=== PATIENT | female | born 2005 | race Two or more races ===

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

== ENCOUNTER 2025-08-14 15:28 | Inpatient (IN) | payer MEDICAID ==
[~2025-08-14] VITALS: Ht 165.1 cm; Wt 89.4 kg
[2025-08-14 17:45] LABS: Urine Budding Yeast OCCASIONAL /hpf (None Seen); Urine Protein, UAD TRACE (Negative)
[2025-08-14] MEDS ORDERED: LIDOCAINE 2%HCL (LOCAL ANESTH.) INJ 20ML MDV IJ PRN (18:15)
[2025-08-14] MEDS ORDERED: BUTORPHANOL TARTRATE 2 MG/1 ML VIAL IV PRN ×2 (18:15)
[2025-08-14] MEDS ORDERED: PENICILLIN G POT 5MIL/D5 50ML 50 ML IV ONE (18:45)
[2025-08-14 18:54] LABS: Amphetamine Screen, Urine Neg (NEGATIVE); Barbiturate Scree,Urine Neg (NEGATIVE); Benzodiazephine Screen, Urine Neg (NEGATIVE); Cannabinoid Screen, Urine Neg (NEGATIVE); Cocaine Screen, Urine Neg (NEGATIVE); Opiate Scree,Urine Neg (NEGATIVE); Phencyclidine Screen, Urine Neg (NEGATIVE)
[2025-08-14 18:57] LABS: Hematocrit 38.6 % (36.0-46.0); Hemoglobin 13.2 g/dL (12.2-16.2); Mean Corpuscular Hemoglobin 27.9 pg (28.0-32.0); Mean Corpuscular Volume 81.2 fL (80.0-100.0); Nucleated Red Blood Cells % 0.0 %
[2025-08-14 19:14] LABS: Alkaline Phosphatase 110 U/L (46-116); Calcium 8.9 mg/dL (8.7-10.4); Carbon Dioxide 23 mmol/L (20-31); Chloride 105 mmol/L (98-107)
[2025-08-14 19:15] LABS: Albumin 3.8 g/dL (3.2-4.8); Anion Gap 12 (5-15); BUN/Creatinine Ratio 21.4 (10.0-20.0); Blood Urea Nitrogen 12 mg/dL (9-23); Glucose 75 mg/dL (74-106); Potassium 4.1 mmol/L (3.5-5.1); Sodium 140 mmol/L (136-145); Total Protein 6.5 g/dL (5.7-8.2)
[2025-08-14 19:18] LABS: Alanine Aminotransferase 9 U/L (7-40); Bilirubin, Total 0.3 mg/dL (0.2-1.0)
[2025-08-14 19:34] LABS: INR 0.96 (0.9-1.15); Partial Thromboplastin Time 30.2 SEC (24.5-34.5); Prothrombin Time 10.2 sec (9.3-11.8)
--- NOTE | 2025-08-14 20:10 | DVH ---
EXAM: US OB ULTRASOUND COMP GTR 14 WKS HISTORY: possible SROM COMPARISON: US OB ULTRASOUND COMP GTR 14 WKS on DOS: 03/27/24 TECHNIQUE: Transabdominal and endovaginal real time diallo scale, color, and doppler evaluation. Permanent images are maintained in the patient record. FINDINGS: GA by previous US/LMP: 36 weeks, 2 days LUIZ by previous US/LMP: 09/09/25 US GESTATIONAL AGE: 36 weeks, 6 days US LUIZ: 09/05/25 ESTIMATED WEIGHT: 2847 g. 6 lb, 4 oz HEART RATE: 152 bpm BPD: 9.34 cm, 38 weeks 0 days, 93.6% HC: 33.2 cm, 37 weeks 6 days, 59.8% AC: 31.59 cm, 35 weeks 4 days, 38.6% FL: 6.97 cm, 35 weeks 5days, 32.3% HC/AC: 1.05 ANATOMY: Normal head, 4 chamber heart, face, spine, stomach, kidneys, cord insertion, bladder, extremities POSITION: Vertex PLACENTA: Posterior GRADE: 2 GABRIEL: 13.39 cm IMPRESSION: 1. Single viable gestation with normal cardiac heart rate.
[2025-08-14] MEDS: LACTATED RINGER'S 1,000 ML IV SCH (20:27)
[2025-08-14] MEDS: WITCH HAZEL-GLYCERIN PAD TOP PRN (20:27)
[2025-08-14] MEDS: DERMOPLAST 60ML BOTTLE TOP PRN (20:27)
[2025-08-14] MEDS: PHISODERM TOP SOLN 240ML BTL TOP PRN (20:28)
[2025-08-14] MEDS ORDERED: PENICILLIN G POTASSIUM 2,500,000 UNITS in D5W 5% 50 ML IV SCH (22:45)
[2025-08-14] MEDS: ceFAZolin 2 GM/D5W50ml 50 ML IV ONE (23:13)
[2025-08-15] MEDS: LACTATED RINGER'S 1,000 ML IV ONE (02:37)
[2025-08-15] MEDS: ROPIVACAINE HCL 100 ML ONE ×2 (03:42→10:30)
[2025-08-15] MEDS ORDERED: ONDANSETRON HCL 4 MG/2 ML VIAL IV PRN (04:00)
[2025-08-15] MEDS ORDERED: TERBUTALINE SULFATE 1 MG/ML 1ML VIAL SC PRN (04:15)
--- NOTE | 2025-08-15 05:54 | DVHHP2 ---
OB CC & HPI Date Date of Admission: Aug 14, 2025 Patient Identification: : 2 Para: 2 EDC: Sep 12, 2025 EGA: 36+ weeks Chief Complaints: Other reason for admission: Spontaneous Admission Nurse Assessment Rev: Yes History of Present Complaints Patient arrived leaking fluid confirmed started Cytotec augmentation Past Medical History Cardiac: No pertinent Hx Pulmonary: No pertinent Hx Central Nervous System: No pertinent Hx GI: No pertinent Hx Hemotology/Oncology: No pertinent Hx Hepatobiliary: No pertinent Hx Psychiatric: No pertinent Hx Musculoskeletal: No pertinent Hx Rheumotologic: No pertinent Hx Infectious Disease: No peritnent Hx ENT: No pertinent Hx Renal/: No pertinent Hx Endocrine: No pertinent Hx Dermatology: No pertinent Hx Past Surgical History: No pertinent Hx OB History OB History Care: Good Care Ultrasounds: Normal mid trimester US Allergies: Coded Allergies: NO KNOWN ALLERGIES (Unverified , 03/09/24) Home Meds Active Scripts Ibuprofen Micronized (MOTRIN TABLET) 600 Mg Tb, 600 MG PO Q6HP PRN for 10 Days, #40 TAB Prov:NELLY LOPEZ DO 03/28/24 Vit W/ Ferrous Fumara ( One Daily) Daily Tab, 1 TAB PO DAILY, #90 TAB 3 Refills Prov:NIRAJ MCGRAW CNM 03/10/24 Current Medications Current Medications Medications (Trade) Dose Ordered Sig/Tasia Route PRN Reason Start Time Stop Time Status Last Admin Lactated Ringer's 1,000 ml @ 125 mls/hr Q8H IV 08/14/25 18:15 08/14/25 23:18 Penicillin G Potassium [id number] units/Dextrose 50 ml @ 100 mls/hr Q4H IV 08/14/25 22:45 08/15/25 04:01 DC Paul Wylie (Tucks) 1 pad PRN PRN TOP PERINEAL AREA DISCOMFORT 08/14/25 18:15 08/14/25 20:27 Sodium Lauryl Sulfate (Phisoderm) 240 ml PRN PRN TOP PERINEAL AREA DISCOMFORT 08/14/25 18:15 08/14/25 20:28 Benzocaine (Dermoplast) 1 applic PRN PRN TOP PERINEAL AREA DISCOMFORT 08/14/25 18:15 08/14/25 20:27 Butorphanol Tartrate (Stadol Injection) 1 mg Q4HPRN PRN IV MODERATE PAIN (4-6 PAIN SCALE) 08/14/25 18:15 Butorphanol Tartrate (Stadol Injection) 2 mg Q4HPRN PRN IV SEVERE PAIN (7-10 PAIN SCALE) 08/14/25 18:15 Misoprostol (Cytotec) 50 mcg Q4HPRN PRN PO CERVICAL RIPENING 08/14/25 18:15 08/15/25 02:04 Lidocaine HCl (Xylocaine) 20 ml ONCE PRN IJ PERINEAL AREA DISCOMFORT 08/14/25 18:15 Cefazolin Sodium 50 ml @ 100 mls/hr Q8HR IV 08/15/25 07:00 Ondansetron HCl (Zofran) 4 mg Q6HPRN PRN IV NAUSEA / VOMITING 08/15/25 04:00 Methylergonovine Maleate (Methergine) 0.2 mg ONCE PRN IM BLEED/HEMORRHAGE 08/15/25 06:00 Terbutaline Sulfate (Brethine Inj) 0.25 mg ONCE PRN SC Uterine tachysystole 08/15/25 04:15 Family & Social History Family/Social History Blood Type: Unknown Rubella: unknown RPR/VDRL: Unknown GBS Status: Unknown HBsAG: Unknown Review of Systems Constitutional: No symptom reported Ears, Nose, & Throat: No symptom reported Eyes: No symptom reported Pulmonary/Respiratory: No symptom reported Cardiovascular: No symptom reported Gastrointestinal: No symptom reported Genitourinary: No symptom reported Musculoskeletal: No symptom reported Skin: No symptom reported Psychiatric: No symptom reported Endocrine: No symptom reported Hemotologic/Lymphatic: No symptom reported OB Admission Exam Physical Exam Cervical Dilatation: 1cm Effacement: 50% Station: -3 Membranes: Ruptured Amniotic Fluid: Clear Heart Rate: 130's Accelerations: Accelerations Present Snf Variability: Average (6-25) Contractions on Admission: >10 Minutes Apart Intensity: Mild OB Plan Plan Admitting Diagnosis: SROM 36+ weeks per takes Plan: Other (Augmentation Cytotec) Other Plan: Expectant management Visit Coding OBGYN Date of Service: Aug 15, 2025 Billing Provider: CORNELL AARON DO PRESS OPERATOR [employer] Common Visit Codes: [id number] SAME DATE (HIGH) PRESS OPERATOR [employer] Procedure Codes: 53566-83- NON-STRESS TEST CORNELL AARON DO Aug 15, 2025 05:54
[2025-08-15] MEDS: ceFAZolin 1GM/50ML 50 ML IV SCH (07:08)
[2025-08-15] MEDS: LACT. RINGERS/OXYTOCIN 20UNITS 1,000 ML IV SCH (07:46)
--- NOTE | 2025-08-15 08:04 | DVHPN2 ---
CNM Labor Progress Note Date and Time Seen Date Seen: Aug 15, 2025 Time Seen: 07:45 Subjective Subjective Comment Pt is comfortable with epidural, denies pain or pressure. Pt reports receiving rhogam at 32 weeks. Objective Vital Signs VSS, see CPN U/S OB: EFW 2847 g, 6 lb 4 oz, Vertex Monitoring Method Monitoring Method: External Heart Rate Heart Rate Baseline: 130 Heart Rate Variability: Moderate Presence of FHR Accelerations: Yes Presence of FHR Decelerations: No Are all 5 Components of the FH: Yes Contractions Contractions Frequency: Other (q4-5 min) Duration of Contraction: 90 Contractions Intensity: Moderate Contractions Resting Tone: Relaxed Membranes Membranes: Ruptured Amniotic Fluid Color: Clear Vaginal Exam Vag Exam Deferred: Yes (SVE by RN: /-2) Medications Medications - Pitocin: Yes (2mu) Medication - Epidural: Yes Medication - Other s/p 2 doses of PO cytotec Lab Results Lab Results Current Medications Medications (Trade) Dose Ordered Sig/Tasia Start Time Stop Time Status Last Admin Dose Admin Lactated Ringer's 1,000 ml @ 125 mls/hr Q8H 08/14/25 18:15 08/15/25 07:08 125 MLS/HR Penicillin G Potassium 50 ml @ 100 mls/hr ONCE ONCE 08/14/25 18:45 08/15/25 04:01 DC Penicillin G Potassium [id number] units/Dextrose 50 ml @ 100 mls/hr Q4H 08/14/25 22:45 08/15/25 04:01 DC Paul Wylie (Tucks) 1 pad PRN PRN 08/14/25 18:15 08/14/25 20:27 1 PAD Sodium Lauryl Sulfate (Phisoderm) 240 ml PRN PRN 08/14/25 18:15 08/14/25 20:28 240 ML Benzocaine (Dermoplast) 1 applic PRN PRN 08/14/25 18:15 08/14/25 20:27 1 APPLIC Butorphanol Tartrate (Stadol Injection) 1 mg Q4HPRN PRN 08/14/25 18:15 Butorphanol Tartrate (Stadol Injection) 2 mg Q4HPRN PRN 08/14/25 18:15 Misoprostol (Cytotec) 50 mcg Q4HPRN PRN 08/14/25 18:15 08/15/25 02:04 50 MCG Lidocaine HCl (Xylocaine) 20 ml ONCE PRN 08/14/25 18:15 Cefazolin Sodium/ Dextrose 50 ml @ 50 mls/hr ONCE ONCE 08/14/25 23:00 08/14/25 23:59 DC 08/14/25 23:13 50 MLS/HR Cefazolin Sodium 50 ml @ 100 mls/hr Q8HR 08/15/25 07:00 08/15/25 07:08 100 MLS/HR Ephedrine Sulfate (ePHEDrine SULFATE) 10 mg PRN ONCE 08/15/25 02:15 08/15/25 02:16 DC Lactated Ringer's 1,000 ml @ 1,000 mls/hr Q1H ONCE 08/15/25 02:15 08/15/25 03:14 DC 08/15/25 02:37 1,000 MLS/HR Ondansetron HCl (Zofran) 4 mg Q6HPRN PRN 08/15/25 04:00 Methylergonovine Maleate (Methergine) 0.2 mg ONCE PRN 08/15/25 06:00 Terbutaline Sulfate (Brethine Inj) 0.25 mg ONCE PRN 08/15/25 04:15 Oxytocin 500 ml @ 999 mls/hr Q31M ONCE 08/15/25 07:00 08/15/25 07:30 DC Oxytocin 500 ml @ 125 mls/hr Q4H ONCE 08/15/25 07:30 08/15/25 11:29 Oxytocin 1,000 ml @ 6 ml/hr Q24H 08/15/25 07:00 08/15/25 07:46 6 ML/HR Laboratory Tests Test 08/14/25 18:27 08/14/25 16:40 08/14/25 14:55 Range/Units White Blood Count 9.7 4.4-10.8 10^3/uL Red Blood Count 4.75 4.0-5.20 10^6/uL Hemoglobin 13.2 12.2-16.2 g/dL Hematocrit 38.6 36.0-46.0 % Mean Corpuscular Volume 81.2 80.0-100.0 fL Mean Corpuscular Hemoglobin 27.9 L 28.0-32.0 pg Mean Corpuscular Hemoglobin Concent 34.3 32.0-36.0 g/dL Red Cell Distribution Width 16.3 H 11.8-14.3 % Platelet Count 251 140-450 10^3/uL Mean Platelet Volume 8.1 6.9-10.8 fL Neutrophils (%) (Auto) 74.8 37.0-80.0 % Lymphocytes (%) (Auto) 18.1 10.0-50.0 % Monocytes (%) (Auto) 6.1 0.0-12.0 % Eosinophils (%) (Auto) 0.4 0.0-7.0 % Basophils (%) (Auto) 0.6 0.0-2.0 % Neutrophils # (Auto) 7.2 1.6-8.6 10 ^3/uL Lymphocytes # (Auto) 1.7 0.4-5.4 10 ^3/uL Monocytes # (Auto) 0.6 0-1.3 10 ^3/uL Eosinophils # (Auto) 0 0-0.8 10 ^3/uL Basophils # (Auto) 0.1 0-0.2 10 ^3/uL Nucleated Red Blood Cells 0.0 % Prothrombin Time 10.2 9.3-11.8 sec Prothrombin Time INR 0.96 0.9-1.15 Activated Partial Thromboplast Time 30.2 24.5-34.5 SEC Sodium Level 140 136-145 mmol/L Potassium Level 4.1 3.5-5.1 mmol/L Chloride Level 105 98-107 mmol/L Carbon Dioxide Level 23 20-31 mmol/L Anion Gap 12 5-15 Blood Urea Nitrogen 12 9-23 mg/dL Creatinine 0.56 0.550-1.02 mg/dL Glomerular Filtration Rate Calc 134 >90 mL/min BUN/Creatinine Ratio 21.4 H 10.0-20.0 Serum Glucose 75 74-106 mg/dL Calcium Level 8.9 8.7-10.4 mg/dL Total Bilirubin 0.3 0.2-1.0 mg/dL Aspartate Amino Transferase (AST) 15 13-40 U/L Alanine Aminotransferase (ALT) 9 7-40 U/L Alkaline Phosphatase 110 46-116 U/L Total Protein 6.5 5.7-8.2 g/dL Albumin 3.8 3.2-4.8 g/dL Treponema pallidum Antibody Non-reactive Negative Hepatitis B Surface Antigen Negative Negative Hepatitis C Antibody Negative Negative HIV (1&2) Antibody Negative Negative Rubella Antibody Positive Placental [id number] Positive Urine Color Yellow Yellow Urine Clarity Clear Clear Urine pH 6.5 5.0-9.0 Urine Specific [place] 1.023 1.001-1.035 Urine Protein Trace H Negative Urine Ketones Negative Negative Urine Blood Negative Negative /uL Urine Nitrite Negative Negative Urine Bilirubin Negative Negative Urine Urobilinogen Normal Negative mg/dL Urine Leukocyte Esterase 1+ Negative /uL Urine RBC <1 0 - 4 /hpf Urine Microscopic WBC 9 H 0-5 /HPF Urine Squamous Epithelial Cells Few <5 /hpf Urine Bacteria Few H None Seen /hpf Urine Hyaline Casts Few 0 - 2 /lpf Urine Yeast (Budding) Occasional None Seen /hpf Urine Glucose Normal Normal mg/dL Urine Opiates Screen Neg NEGATIVE Urine Fentanyl Screen Neg NEGATIVE Urine Barbiturates Screen Neg NEGATIVE Urine Phencyclidine Screen Neg NEGATIVE Urine Amphetamines Screen Neg NEGATIVE Urine Benzodiazepines Screen Neg NEGATIVE Urine Cocaine Screen Neg NEGATIVE Urine Cannabinoids Screen Neg NEGATIVE Chlamydia trachomatis (DEBO) Pending Neisseria gonorrhoeae (DEBO) Pending Assessment Assessment A: 21yo IUP@36.3wks Labor augmentation for PPROM (Clear fluid) Category I EFM RH negative GBS negative Plan Plan P: Continue with IV pitocin titration per order monitoring per order Pain mgmt - epidural in place Frequent position changes in bed encouraged Limit SVE unless necessary Intrauterine resuscitation PRN Anticipate [place]ul co-managing with Dr. Escalante Plan discussed with: Patient Visit Coding OBGYN Date of Service: Aug 15, 2025 Billing Provider: NIRAJ MCGRAW CNM CLINICAL TRIAL SPECIALIST Common Visit Codes: [id number] INP/OBS CARE(HIGH) CLINICAL TRIAL SPECIALIST Procedure Codes: 42175-81- NON-STRESS TEST NIRAJ MCGRAW CNM Aug 15, 2025 08:04
[2025-08-15] MEDS: LACT. RINGERS/OXYTOCIN 20UNITS 500 ML IV ONE ×2 (12:15→12:45)
[2025-08-15] MEDS: METHYLERGONOVINE MALEATE 0.2 MG/ML AMP IM ONE (12:25)
[2025-08-15] MEDS: METHYLERGONOVINE MALEATE 0.2 MG/ML AMP IM PRN (12:27)
[2025-08-15] MEDS ORDERED: ACETAMINOPHEN 325 MG TAB PO PRN (12:45)
--- NOTE | 2025-08-15 12:48 | LDN2 ---
Labor and Delivery Note Date 08/15/25 Age 20 2 Para 2 now EDC 09/09/25 EGA 36.3wks Diagnosis PPROM then Vaginal Delivery: VTX Vacuum Assisted: No Placenta: Spontaneous Sex: Male Weight pending Apgars 9/9 Nuchal Cord Transected: No Amniotic Fluid: Clear Anesthesia epidural Episiotomy: No Extension: No Repaired with 3-0 vicryl SH EBL QBL 800ml Labs Laboratory Tests 08/14/25 18:27: Hepatitis B Surface Antigen Negative, HIV (1&2) Antibody Negative, Rubella Antibody Positive Blood Bank 08/14/25 18:27: Blood Type O NEGATIVE Complications none Conditions stable Television Reporter Tanner Comments/Significant Med Mono At 1154 this 20yo now delivered a viable Male by w/ APGARS 9/9. STEPHEN with loose Nuchal x1 with cord reduced after . Infant placed skin to skin on pts chest. Cord clamped and cut after pulsation ceased. Cord blood sent. Intact 3-vessel cord placenta delivered spontaneously, Davey. Pitocin IV bolus started. Fundus at U, firm, midline, and moderate lochia. Placenta sent to pathology. Manual sweep done, uterus cleared of all clots, firm lower uterine segment noted. Ancef 2g IV x1 ordered for prophylaxis. Methergine IM x1 given. Patient had epidural anesthesia. Cervix/vagina/perineum inspected (intact) and right labial laceration present which was repaired with 3-0 vicryl SH suture. Left labial abrasion noted, hemostatic, repair not needed. Fundus at U, firm, midline, and light lochia. QBL 800ml. VSS. Count correct x2. Patient to care and baby to couplet care, both stable. Delivery and repair done by PAOLA Dunn and Dr. Trena Rodriguez ( resident) with supervision of Humza Mcgraw CNM. Visit Coding OBGYN Date of Service: Aug 15, 2025 Billing Provider: NIRAJ MCGRAW CNM OIL BOILER Common Visit Codes: PROCEDURE ONLY OIL BOILER Procedure Codes: [id number] DEL INCLUDING NIRAJ MCGRAW CNM Aug 15, 2025 12:48
[2025-08-15] MEDS: ceFAZolin 2 GM/D5W50ml 50 ML IV ONE (13:27)
[2025-08-15 15:30] VITALS: BP 123/80; PULSE 103; RESP 20; TEMP 98.5; O2SAT 97
[2025-08-15] MEDS: IBUPROFEN 600 MG TAB PO PRN (15:55)
[2025-08-15 19:30] VITALS: BP 129/85; PULSE 98; RESP 20; TEMP 98.8; O2SAT 98
[2025-08-15] MEDS ORDERED: IBU600T PO (19:31)
[2025-08-15] MEDS ORDERED: PREN-96 PO (19:31)
[2025-08-15] MEDS ORDERED: DOCU-265 PO (19:31)
[2025-08-15] MEDS: DOCUSATE SOD 100 MG CAP PO SCH (19:51)
[2025-08-15 21:07] VITALS: BP 102/54; PULSE 92; RESP 18; TEMP 98.1
[2025-08-15] MEDS: RHO (D) IMMUNE GLOBULIN 300 MCG INJ IM ONE (21:10)
[2025-08-15 21:21] VITALS: BP 129/85; PULSE 80; RESP 18; TEMP 98
[2025-08-15 23:00] VITALS: BP 111/54; PULSE 94; RESP 18; TEMP 98.1; O2SAT 98
[2025-08-16 03:00] VITALS: BP 113/65; PULSE 80; RESP 18; TEMP 98.4; O2SAT 97
--- NOTE | 2025-08-16 04:32 | DVHPN2 ---
Progress Note Date Seen: Aug 16, 2025 Subjective S: bleeding is less, eating food without issues, denies lightheaded/dizziness, pain well controlled with oral medications, no concerns with urinating, passing flatus, no BM yet, ambulating well, and formula vital signs Vital Sign Date Time Temp Pulse Resp B/P (MAP) Pulse Ox O2 Delivery O2 Flow Rate FiO2 08/16/25 03:00 98.4 80 18 113/65 (81) 97 98.4 08/15/25 19:30 Room Air Total Intake and Output 08/15/25 08/15/25 08/16/25 15:00 23:00 07:00 Intake Total 2 ml Output Total 2850 ml Balance -2848 ml medications Current Medications Medications Dose Ordered Sig/Tasia Route Start Time Stop Time Status Last Admin Dose Admin Paul Wylie 1 pad PRN PRN TOP 08/14/25 18:15 08/14/25 20:27 1 PAD Sodium Lauryl Sulfate 240 ml PRN PRN TOP 08/14/25 18:15 08/14/25 20:28 240 ML Benzocaine 1 applic PRN PRN TOP 08/14/25 18:15 08/14/25 20:27 1 APPLIC Methylergonovine Maleate 0.2 mg ONCE PRN IM 08/15/25 06:00 08/15/25 12:27 0.2 MG Ibuprofen 600 mg Q6HP PRN PO 08/15/25 12:45 08/15/25 23:34 600 MG Acetaminophen 650 mg Q6HPRN PRN PO 08/15/25 12:45 Prenat Multivit/ Resource Center Teacher/Iron/Folic Ac 1 DAILY PO 08/16/25 10:00 Docusate Sodium 200 mg DAILY PO 08/15/25 20:00 08/15/25 19:51 200 MG laboratory and microbiology Laboratory Tests 08/14/25 18:27 Test 08/14/25 18:27 Range/Units Serum Glucose 75 74-106 mg/dL Objective O: VSS Chest: heart sounds normal and lung sounds clear bilaterally Abd: soft, non-tender, fundus 1-U/firm/midline, active bowel sounds, no rebound or guarding Perineum: sutures intact, edges well approximated, no erythema/edema noted Ext: Non-tender, No edema, 2+ BLE DTRs Lochia: minimal See lab results Problems(with codes): (1) (normal spontaneous vaginal delivery) (2) Obstetric labial laceration, delivered, current hospitalization Assessment/Plan A: 20yo now PPD#1 s/p Rh+ Rubella Immune and formula P: D/C home today Rx sent to pharmacy precautions and preeclampsia warning signs reviewed F/U with [facility] office in 2 weeks Plan discussed with: Patient, Spouse Visit Coding OBGYN Date of Service: Aug 16, 2025 Billing Provider: NIRAJ MCGRAW CNM PROJECT INSPECTOR Common Visit Codes: [id number] INP/OBS CARE(MOD) NIRAJ MCGRAW CNM Aug 16, 2025 04:32
--- NOTE | 2025-08-16 04:36 | DVHDS2 ---
Obstetrics Discharge Summary Obstetrics Discharge Summary Date of Admission: Aug 14, 2025 Date of Discharge: Aug 16, 2025 Reason For Admission: PROM Procedures: NST, Ultrasound Intrapartum Procedures: Spontaneous vaginal deliv Procedures: Antibiotics, Hct/date: (08/16/25), Hgb/date: (08/16/25) Operative Complicat: Laceration (right labial) Discharge Diagnosis: Delivery Discharge Information: Activity (as tolerated, no heavy lifting and nothing in the vagina for 6 weeks), Diet (Routine), Medications (rx sent), Instructions (Routine), Discharge to (Home), Accompanied by (partner), Discarge date (08/16/25) Visit Coding OBGYN Date of Service: Aug 16, 2025 Billing Provider: NIRAJ MCGRAW CNM ESTABLISHMENT GUIDE Common Visit Codes: [id number] DISCH DAY <30MIN NIRAJ MCGRAW CNM Aug 16, 2025 04:36
[2025-08-16 05:25] LABS: Hematocrit 34.2 % (36.0-46.0); Hemoglobin 11.7 g/dL (12.2-16.2); Mean Corpuscular Hemoglobin 27.8 pg (28.0-32.0); Mean Corpuscular Volume 81.3 fL (80.0-100.0); Nucleated Red Blood Cells % 0.1 %
[2025-08-16 07:30] VITALS: BP 110/58; PULSE 78; RESP 18; TEMP 98.2; O2SAT 97
[2025-08-16] MEDS: PRENATAL VITAMIN TAB PO SCH (10:00)
[2025-08-16 11:17] VITALS: BP 120/63; PULSE 68; RESP 16; TEMP 98; O2SAT 97
[2025-08-16 15:30] VITALS: BP 118/59; PULSE 62; RESP 16; TEMP 98.1; O2SAT 97
[2025-08-16 19:00] VITALS: BP 111/67; PULSE 100; RESP 18; TEMP 98.4; O2SAT 98
[2025-08-16 23:00] VITALS: BP 99/51; PULSE 93; RESP 17; TEMP 98.1; O2SAT 97
--- NOTE | 2025-08-17 00:17 | DVHPN2 ---
Progress Note Date Seen: Aug 17, 2025 Subjective S: bleeding is less, eating food without issues, denies lightheaded/dizziness, pain well controlled with oral medications, no concerns with urinating, passing flatus, no BM yet, ambulating well, and formula vital signs Vital Sign Date Time Temp Pulse Resp B/P (MAP) Pulse Ox O2 Delivery O2 Flow Rate FiO2 08/16/25 23:00 98.1 93 17 99/51 (67) 97 98.1 08/16/25 19:00 Room Air medications Current Medications Medications Dose Ordered Sig/Tasia Route Start Time Stop Time Status Last Admin Dose Admin Paul Inessa 1 pad PRN PRN TOP 08/14/25 18:15 08/14/25 20:27 1 PAD Sodium Lauryl Sulfate 240 ml PRN PRN TOP 08/14/25 18:15 08/14/25 20:28 240 ML Benzocaine 1 applic PRN PRN TOP 08/14/25 18:15 08/14/25 20:27 1 APPLIC Methylergonovine Maleate 0.2 mg ONCE PRN IM 08/15/25 06:00 08/15/25 12:27 0.2 MG Ibuprofen 600 mg Q6HP PRN PO 08/15/25 12:45 08/16/25 22:57 600 MG Acetaminophen 650 mg Q6HPRN PRN PO 08/15/25 12:45 Prenat Multivit/ Area Field Person/Iron/Folic Ac 1 DAILY PO 08/16/25 10:00 Docusate Sodium 200 mg DAILY PO 08/15/25 20:00 08/15/25 19:51 200 MG laboratory and microbiology Laboratory Tests 08/16/25 05:05 08/14/25 18:27 Test 08/14/25 18:27 Range/Units Serum Glucose 75 74-106 mg/dL Objective O: VSS Chest: heart sounds normal and lung sounds clear bilaterally Abd: soft, non-tender, fundus 1-U/firm/midline, active bowel sounds, no rebound or guarding Perineum: sutures intact, edges well approximated, no erythema/edema noted Ext: Non-tender, No edema, 2+ BLE DTRs Lochia: minimal Rhogam received Problems(with codes): (1) (normal spontaneous vaginal delivery) (2) Precipitous drop in hematocrit (3) Obstetric labial laceration, delivered, current hospitalization Assessment/Plan A: 20yo now PPD#2 s/p Rh negative Rubella Immune and formula P: D/C home today 08/17/25 Rx sent to pharmacy precautions and preeclampsia warning signs reviewed F/U with [facility] office in 2 weeks Plan discussed with: Patient, Spouse Visit Coding OBGYN Date of Service: Aug 17, 2025 Billing Provider: NIRAJ MCGRAW CNM PAPER [employer] MACHINE TENDER Common Visit Codes: [id number] INP/OBS CARE(MOD) NIRAJ MCGRAW CNM Aug 17, 2025 00:17
--- NOTE | 2025-08-17 00:18 | DVHDS2 ---
Obstetrics Discharge Summary Obstetrics Discharge Summary Date of Admission: Aug 14, 2025 Date of Discharge: Aug 17, 2025 Reason For Admission: PROM Procedures: NST, Ultrasound Intrapartum Procedures: Spontaneous vaginal deliv Procedures: Antibiotics, Hct/date: (08/16/25), Hgb/date: (08/16/25) Operative Complicat: Laceration (right labial) Discharge Diagnosis: Delivery Discharge Information: Activity (as tolerated, no heavy lifting and nothing in the vagina for 6 weeks), Diet (Routine), Medications (Rx sent), Instructions (Routine), Discharge to (Home), Accompanied by (partner), Discarge date (08/17/25) Visit Coding OBGYN Date of Service: Aug 17, 2025 Billing Provider: NIRAJ MCGRAW CNM [employer] TECHNICIAN Common Visit Codes: 05543-[id number]/OBS DISCH DAY <30MIN NIRAJ MCGRAW CNM Aug 17, 2025 00:18
[2025-08-17 02:50] VITALS: BP 108/61; PULSE 87; RESP 17; TEMP 97.8; O2SAT 96
[2025-08-17 06:06] LABS: Chlamydia Trachomatis, NAA Negative (Negative); Neisseria gonorrhoeae, NAA Negative (Negative)
[2025-08-17 07:09] VITALS: BP 115/69; PULSE 93; RESP 17; TEMP 98.1; O2SAT 96
[2025-08-17 11:06] VITALS: BP 118/73; PULSE 96; RESP 17; TEMP 98.6; O2SAT 96
[2025-08-17 15:10] VITALS: BP 126/74; PULSE 98; RESP 17; TEMP 98.4; O2SAT 96
== END 2025-08-17 16:40 | disposition home or self-care (01) | DRG 560 ==
LOC: UNDOADMOB 15:28 → LDRP 15:28 → UNDOADMOB 15:51 → OBSVTOIN 18:02 → LDRP 18:02 → INTOOBSV 18:02 → LDRP 18:03
PROVIDERS: ADMIT Obstetrics & Gynecology; ATTEND Obstetrics & Gynecology
PROC: 0HQ9XZZ Repair Perineum Skin, External Approach (ICD-10-PCS; principal; 2025-08-15)
PROC: 10E0XZZ Delivery of Products of Conception, External Approach (ICD-10-PCS; 2025-08-15)
PROC: 30233S1 Transfusion of Nonautologous Globulin into Peripheral Vein, Percutaneous Approach (ICD-10-PCS; 2025-08-15)
PROC: 3E0R3BZ Introduction of Anesthetic Agent into Spinal Canal, Percutaneous Approach (ICD-10-PCS; 2025-08-15)
PROC: 00HU33Z Insertion of Infusion Device into Spinal Canal, Percutaneous Approach (ICD-10-PCS; 2025-08-15)
DX: O42.913 Preterm premature rupture of membranes, unspecified as to length of time between rupture and onset of labor, third trimester (principal); Z37.0 Single live birth; O60.14X0 Preterm labor third trimester with preterm delivery third trimester, not applicable or unspecified; Z3A.36 36 weeks gestation of pregnancy; O70.0 First degree perineal laceration during delivery; O69.81X0 Labor and delivery complicated by cord around neck, without compression, not applicable or unspecified
CPT/HCPCS: 36415; 59025; 59409; 62282; 76805; 80053; 80307; 81001; 84112; 85025; 85610; 85730; 86703; 86762; 86780; 86803; 86850; 86900; 86901; 87340; 90384; 94760; 96360; 96361; 96366; 96372; G0378; J2590; J7060